=== PATIENT | male | born 1995 | race Two or more races ===

== ENCOUNTER 2025-04-02 05:56 | Day surgery (SDC) | payer OTHER, BC, SELFPAY ==
[2025-03-21 09:27] LABS: Hematocrit 47.5 % (39.0-52.0); Hemoglobin 15.9 g/dL (13.0-18.0); Mean Corp Hgb Conc. 33.5 g/dL (33.0-37.0); Mean Corpuscular Volume 94.2 fL (80.0-94.0); Platelet Count 252 10^3/uL (130-400); Red Cell Dist. Width 12.7 % (11.5-14.5)
[2025-03-21 09:55] LABS: ALT (SGPT) 25 U/L (0-50); AST (SGOT) 22 U/L (17-59); Albumin 5.3 g/dl (3.5-5.0); Alkaline Phosphatase 45 U/L (38-126); Blood Urea Nitrogen 19 mg/dl (9-20); Calcium 9.6 mg/dl (8.4-10.2); Carbon Dioxide 27 mmol/L (22-30); Chloride 107 mmol/L (98-107); Glucose 89 mg/dl (70-99); Potassium 4.7 mmol/L (3.5-5.1); Sodium 144 mmol/L (135-145); Total Protein 8.0 g/dl (6.3-8.2); eGFR > 60.00
[2025-03-21 13:53] VITALS: BMI 19.4
[2025-04-01 10:54] VITALS: BMI 19.4
[2025-04-02] VITALS (7 sets, daily range): BP systolic 99–125; BP diastolic 37–88; BMI 19.4
[2025-04-02] MEDS: LYRICA 150 MG PO (06:21)
[2025-04-02] MEDS: CELEBREX 200 MG PO (06:21)
[2025-04-02] MEDS: TYLENOL 1000 MG PO (06:21)
[2025-04-02] MEDS: METHOCARBAMOL 1500 MG PO (06:22)
[2025-04-02] MEDS: NORMOSOL-R/PLASMALYTE-A 1000 IV (06:23)
[2025-04-02] MEDS: DILAUDID 0.25 MG IV (09:21)
[2025-04-02] MEDS: ROXICODONE 5 MG PO (10:28)
== END 2025-04-02 11:10 | disposition home or self-care (01) ==
LOC: SDS 05:56
PROVIDERS: ATTENDING PHYSICIAN Orthopaedic Surgery Orthopaedic Surgery of the Spine; FAMILY PHYSICIAN Physician Assistant
DX: M50.220 Other cervical disc displacement, mid-cervical region, unspecified level (principal); V89.2XXA Person injured in unspecified motor-vehicle accident, traffic, initial encounter
CPT/HCPCS: 22554; 22853; 22551; 20930; C1831; 36415; 72020; 80053; 85027; 86850; 86900; 86901; 87070; 93005; C1713